=== PATIENT | male | born 1970 | race Caucasian/White ===

== ENCOUNTER 2024-02-05 23:09 | Emergency (ER) | payer MEDICAID ==
[~2024-02-05] VITALS: Ht 152.4 cm; Wt 105.5 kg
[~2024-02-05 23:09] MED LIST: NOCURR
[2024-02-05 23:12] VITALS: BP 152/82; PULSE 90; RESP 16; TEMP 97.8
[2024-02-06] MEDS ORDERED: IBUP-1554 PO (00:19)
[2024-02-06] MEDS ORDERED: ACET-66 PO (00:19)
[2024-02-06] MEDS: ACETAMINOPHEN 500 MG TABLET PO ONE (00:21)
[2024-02-06] MEDS: IBUPROFEN 600 MG TABLET PO ONE (00:21)
== END 2024-02-06 00:26 | disposition home or self-care (01) ==
LOC: EMS 23:09
DX: S00.03XA Contusion of scalp, initial encounter (principal); S00.83XA Contusion of other part of head, initial encounter; Z59.00 Homelessness unspecified; Y04.0XXA Assault by unarmed brawl or fight, initial encounter; Y93.89 Activity, other specified; Y92.89 Other specified places as the place of occurrence of the external cause; Y99.8 Other external cause status
CPT/HCPCS: 99283